=== PATIENT | female | born 1980 | race Caucasian/White ===

== ENCOUNTER 2016-12-09 11:55 | Emergency (ER) | payer OTHER ==
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
[2016-12-09] MEDS ORDERED: IBUPROFEN 600 MG TABLET PO ONE (12:38)
== END 2016-12-09 12:45 | disposition home or self-care (01) ==
LOC: ER 11:55
DX: S51.851A Open bite of right forearm, initial encounter (principal); S50.11XA Contusion of right forearm, initial encounter; W50.3XXA Accidental bite by another person, initial encounter; Y93.F9 Activity, other caregiving; Y92.219 Unspecified school as the place of occurrence of the external cause; Y99.0 Civilian activity done for income or pay